=== PATIENT | female | born 1950 | race Caucasian/White ===

== ENCOUNTER 2023-04-01 15:41 | Observation (INO) ==
--- NOTE | 2023-04-01 16:35 | Emergency Department Note ---
History of Present Illness General Chief complaint: Chest Pain Stated complaint: CHEST PAIN Time Seen by Provider: 04/01/23 16:09 History of Present Illness Maximum Pain Intensity: 2 72-year-old female with past medical history significant for hyperlipidemia and SVT presents to the emergency department accompanied by for evaluation of chest pain. Patient states she woke from her sleep yesterday with left-sided chest pain. She described it as a tenderness/ache. Episode lasted until the afternoon. Her pain did radiate up into her jaw and down her left arm. Symptoms resolved and did not return until she was seen by her PCP earlier this afternoon. She notes that she did have an episode last week as well but related to a pulled muscle as she was pulling weeds in her garden earlier in the day. She denies associated palpitations or shortness of breath. No dizziness/lig htheadedness. She did walk her routine 5 miles this morning and did notice feeling more short of breath during it. Her chest pain does not appear to be associated with exertion. It is not pleuritic in nature. She denies recent cold-like symptoms, fever/chills, cough, nausea/vomiting, abdominal pain. No diarrhea, urinary symptoms, hematuria, hematochezia, or melena. She denies history of UT. Denies history of blood clots, lower extremity swelling, calf pain, recent prolonged immobilization/surgeries, hormone use. Her only medications is atorvastatin for HLD. She has not taken anything for her symptoms. Home Medications Medication Instructions Recorded Confirmed Type Probiotic 1 cap PO DAILY 04/01/23 04/01/23 History atorvastatin 10 mg tablet 10 mg PO HS 04/01/23 04/01/23 History melatonin 5 mg chewable tablet 5 mg PO HS PRN sleep 04/01/23 04/01/23 History multivitamin 2 tab PO DAILY 04/01/23 04/01/23 History omega 0-vsv-qgu-fish oil 1,000 mg 1 cap PO DAILY 04/01/23 04/01/23 History (120 mg-180 mg) capsule (Fish Oil) Allergies Allergy/AdvReac Type Severity Reaction Status Date / Time streptomycin Allergy Unknown Unverified 09/29/09 02:21 augmentin Allergy Unknown rash Uncoded 04/01/23 18:18 tetracycline Allergy Unknown rash Uncoded 04/01/23 18:18 avelox AdvReac Unknown headache Uncoded 04/01/23 18:18 carvalho-2 inhibitors AdvReac Unknown unknown Uncoded 04/01/23 18:18 Past Med/Surg History Medical History (Updated 04/01/23 @ 18:29 by Cristiana Ludwig PA-C) Bruxism, sleep-related Hyperlipidemia Other osteoporosis Prediabetes Social History Smoking Status: Never smoker Feels Safe at Home: Yes Physical Exam Vital Signs Vital Signs - 24 hr 04/01/23 15:45 04/01/23 16:36 04/01/23 15:42 Temperature 36.6 C Temperature Source Oral Pulse Rate 73 67 Pulse Rate [Apical] Respiratory Rate 18 Respiratory Effort / Characteristics Respiratory Depth Respiratory Pattern Blood Pressure 167/85 H Blood Pressure [Left Arm] Blood Pressure Mean 112 Blood Pressure Mean [Left Arm] Pulse Oximetry 99 Oxygen Delivery Method Room Air Sepsis Recent Fever Within 48 Hours No Sepsis New/Unexplained Change in Mental Status No Sepsis Action Taken by Nursing No Action Required 04/01/23 15:42 04/01/23 17:41 Temperature Temperature Source Pulse Rate Pulse Rate [Apical] 65 Respiratory Rate 18 Respiratory Effort / Characteristics Non-Labored Non-Labored Respiratory Depth Normal Normal Respiratory Pattern Regular Blood Pressure Blood Pressure [Left Arm] 154/72 H Blood Pressure Mean Blood Pressure Mean [Left Arm] 99 Pulse Oximetry 97 Oxygen Delivery Method Room Air Room Air Sepsis Recent Fever Within 48 Hours Sepsis New/Unexplained Change in Mental Status Sepsis Action Taken by Nursing Constitutional: alert and oriented x3. no acute distress. nontoxic. HEENT: normocephalic, atraumatic. normal conjunctiva.PERRLA. EOM's grossly intact. TMs pearly de la cruz without effusion. Pharynx pink without exudate. Tonsils nonenlarged. Mucus membranes moist Neck: neck is supple, nontender. Respiratory: lungs are clear to auscultation without wheezes, rhonchi, or rales bilaterally. equal chest rise. normal respiratory effort, no accessory muscle use. mild tenderness to palpation mid anterior left chest wall Cardiovascular: normal heart sounds without murmur. regular rate and rhythm. GI: abdomen is soft, nontender. No palpable masses. No rebound tenderness or guarding. No CVA tenderness MSK: moves all 4 extremities spontaneously Peripheral vascular: extremities warm and well perfused with palpable pulses. Psych:appropriate mood and affect. Course Administered Medications Discontinued Medications Aspirin (Aspirin Chew 324 Mg) 324 mg PO NOW STA Stop: 04/01/23 18:04 Last Admin: 04/01/23 18:08 Dose: 324 mg Documented By: [facility] Medical Decision Making Differential Diagnosis Cardiac ischemia, aortic dissection, pulmonary embolism, pneumothorax, pneumonia , pericarditis, myocarditis, esophageal rupture, GERD, cholecystitis, pancreatitis, musculoskeletal, as well as other pathologies. Laboratory Data Attestation: I reviewed the patient's lab results. 04/01/23 16:38 04/01/23 16:38 Lab Results 04/01/23 04/01/23 04/01/23 Range/Units 16:38 16:38 16:38 WBC 8.43 (4.8-10.8) K/ul RBC 4.32 (4.20-5.40) M/uL Hgb 12.3 (12.0-16.0) g/dl Hct 37.1 (37.0-47.0) % MCV 85.9 (80.0-100.0) fL MCH 28.5 (25.0-34.0) pg MCHC 33.2 (32.0-36.0) g/dL RDW Std Deviation 42.1 (36.4-46.3) fL RDW Coeff of Jil 13.4 (11.5-14.5) % Plt Count 308 (130-400) K/uL MPV 9.4 (9.4-12.4) fL Immature Gran % (Auto) 0.2 % Neut % (Auto) 76.5 % Lymph % (Auto) 14.6 % Baker % (Auto) 7.5 % Eos % (Auto) 0.6 % Baso % (Auto) 0.6 % Neut # (Auto) 6.45 (1.40-6.50) K/uL Lymph # (Auto) 1.23 (1.2-3.4) K/uL Baker # (Auto) 0.63 H (0.11-0.59) K/uL Eos # (Auto) 0.05 (0-0.50) K/uL Baso # (Auto) 0.05 (0-0.2) K/uL Immature Gran # (Auto) 0.02 (0.01-0.20) K/uL PT 10.7 (9.0-12.0) Seconds INR 1.0 (0.9-1.1) APTT 27.6 (21.0-31.0) Seconds PTT Ratio 1.0 Sodium 137 (136-145) mmol/L Potassium 4.1 (3.5-5.1) mmol/L Chloride 105 (98-107) mmol/L Carbon Dioxide 26 (21-32) mmol/L Anion Gap 6 (3-11) BUN 15 (6-23) mg/dl Creatinine 0.70 (0.6-1.2) mg/dl Est Cr Clr Drug Dosing 68.0 ml/min Est GFR ( Amer) 100.3 ml/min Est GFR (Non-Af Amer) 86.6 ml/min BUN/Creatinine Ratio 21.4 H (10-20) Glucose 95 (70-99(Fasting)) mg/dl Calcium 9.1 (8.6-10.3) mg/dl Total Bilirubin 0.5 (0.2-1.0) mg/dl AST 27 (13-39) U/L ALT 21 (7-52) U/L Alkaline Phosphatase 76 (34-104) U/L Troponin I High Sens 2.6 (0-14) pg/ml Total Protein 6.9 (6.0-8.3) gm/dl Albumin 4.2 (3.4-5.0) gm/dl Globulin 2.7 (2.5-4.0) gm/dl Albumin/Globulin Ratio 1.6 (0.9-2) Lipase 52 (11-82) U/L Imaging Data My Impression: Chest x-ray per my interpretation without focal consolidation, pneumothorax, pleural effusion Radiologist's Impression: Chest X-Ray 04/01/23 16:25 XR chest 1V portable CLINICAL HISTORY: Chest pain, nonspecific TECHNIQUE: Single frontal radiograph of the chest was obtained. Comparison: None available at the time of this dictation. FINDINGS: No lines and tubes are seen. Calcified aortic knob is seen. The lungs are clear. No evidence of pleural effusion or pneumothorax. IMPRESSION: No acute chest disease. ACT 112: Negative or not required by law. Electronically signed by: Osvaldo Jeter M.D. 04/01/2023 4:48 PM MDM Narrative 72-year-old female who presents to the emergency department for evaluation of left-sided chest pain. Review of pertinent visits and past medical history performed. Vital signs in ED stable, afebrile. Patient was seen and evaluated as above. IV access was established and labs were obtained. CBC without leukocytosis or acute anemia. CMP without significant electrolyte abnormalities. Renal function within normal limits. LFTs and lipase unremarkable. Coags within normal limits. Troponin negative. EKG demonstrates normal sinus rhythm at a rate of 69 bpm without evidence of ischemic changes. No ST elevations or T wave inversions. No previous EKGs to compare. Patient was placed on a site monitor and at time of my interpretation demonstrates normal sinus rhythm at 73 bpm. Chest x-ray unremarkable. On exam, patient is nontoxic-appearing in no acute distress. She is maintaining normal O2 saturations on room air. Lungs CTA. Abdomen is benign. There is mild reproducible tenderness to the left anterior chest wall. She was given full dose Aspirin 325mg to chew. She declined pain medications while in the ED as she is currently not having any chest pain at this time. Upon reevaluation, patient remained stable with no new concerns. Hemodynamically stable. She continues to deny chest pain. Case was discussed with ED attending, Dr. Angeles. EKG reviewed with him. Her and her were updated on all exam findings and test results. Today's work-up has been reassuring. No evidence of acute UT. No widening mediastinum on CXR to suggest aortic dissection. I do not suspect PE. We discussed treatment options. Given characteristics of symptoms as well as her risk factors, I do feel admission to the hospital for full cardiac work-up is warranted at this time. They are in agreement with this. Case was discussed with hospitalist, Dr. Anguiano, who graciously accepted patient to her service for further management. Patient was admitted in stable condition. Impression & Plan Chest pain, Hyperlipidemia Discharge Plan Visit Data Chief Complaint: Chest Pain Stated Complaint: CHEST PAIN ED Provider: Luigi Angeles ED Midlevel Provider: Cristiana Ludwig Discharge Problem: Chest pain, Hyperlipidemia Patient Disposition: Admitted As Inpatient Prescriptions Prescriptions: No Action atorvastatin 10 mg tablet 10 mg PO HS omega 1-dgl-ihg-fish oil [Fish Oil] 1,000 mg (120 mg-180 mg) Capsule 1 cap PO DAILY multivitamin [Multi-Vitamin] Tablet 2 tab PO DAILY melatonin 5 mg Tablet,Chewable 5 mg PO HS PRN (Reason: sleep) Probiotic 1 cap PO DAILY Referrals Referrals: PCP,NO [Physician] -
--- NOTE | 2023-04-01 16:50 | XRay Report ---
XR chest 1V portable CLINICAL HISTORY: Chest pain, nonspecific TECHNIQUE: Single frontal radiograph of the chest was obtained. Comparison: None available at the time of this dictation. FINDINGS: No lines and tubes are seen. Calcified aortic knob is seen. The lungs are clear. No evidence of pleur al effusion or pneumothorax. IMPRESSION: No acute chest disease. ACT 112: Negative or not required by law. Electronically signed by: Osvaldo Jeter M.D. 04/01/2023 4:48 PM
[2023-04-01 17:20] LABS: Basophils # (auto) 0.05 K/uL (0-0.2); Basophils % (auto) 0.6 %; Eosinophils # (auto) 0.05 K/uL (0-0.50); Eosinophils % (auto) 0.6 %; Hematocrit (blood only) 37.1 % (37.0-47.0); Hemoglobin 12.3 g/dl (12.0-16.0); Immature Granulocytes # (auto) 0.02 K/uL (0.01-0.20); Immature Granulocytes % (auto) 0.2 %; Lymphocytes # (auto) 1.23 K/uL (1.2-3.4); Lymphocytes % (auto) 14.6 %; Mean Corpuscular Hemoglobin 28.5 pg (25.0-34.0); Mean Corpuscular Hgb Conc 33.2 g/dL (32.0-36.0); Mean Corpuscular Volume 85.9 fL (80.0-100.0); Mean Platelet Volume 9.4 fL (9.4-12.4); Monocytes # (auto) 0.63 K/uL (0.11-0.59); Monocytes % (auto) 7.5 %; Neutrophils # (auto) 6.45 K/uL (1.40-6.50); Neutrophils % (auto) 76.5 %; Platelet Count 308 K/uL (130-400); RDW Coefficient of Variation 13.4 % (11.5-14.5); RDW Standard Deviation 42.1 fL (36.4-46.3); Red Blood Count 4.32 M/uL (4.20-5.40); White Blood Count 8.43 K/ul (4.8-10.8)
[2023-04-01 17:32] LABS: Albumin Globulin Ratio 1.6 (0.9-2); Albumin Level 4.2 gm/dl (3.4-5.0); BUN Creatinine Ratio 21.4 (10-20); Bilirubin,Total 0.5 mg/dl (0.2-1.0); Calcium 9.1 mg/dl (8.6-10.3); Est GFR (African American) 100.3 ml/min; Est GFR (Non-African American) 86.6 ml/min; Globulin 2.7 gm/dl (2.5-4.0); Potassium 4.1 mmol/L (3.5-5.1); Total Protein 6.9 gm/dl (6.0-8.3)
[2023-04-01 17:39] LABS: Troponin I High Sensitivity 2.6 pg/ml (0-14)
[2023-04-01 17:51] LABS: Partial Thromboplastin Time 27.6 Seconds (21.0-31.0); Prothrombin Time 10.7 Seconds (9.0-12.0)
[2023-04-01] MEDS ORDERED: ASPIRIN CHEW 324 MG PO STA (18:03)
--- NOTE | 2023-04-01 18:21 | History & Physical Report ---
Date of Service April 01, 2023 Assessment & Plan (1) Chest pain: Plan: Possible accelerated angina. EKG without acute ischemic changes and HS trop in negative. Given full dose aspirin and statin therapy was intensified. Admit for rule out ACS and consider risk stratification in the morning. Will plan to add small dose of Norvasc tonight to help with situational HTN. Appreciate cardiology recommendations. (2) Prediabetes: Plan: chronic, diet controlled. (3) Hyperlipidemia: Plan: chronic, atorvastatin intensified based on elevated ASCVD risk score and because of ACS consideration above. Would continue with the 40mg dose at discharge unless otherwise noted by cardiology (4) Elevated blood pressure, situational: Plan: Norvasc 5mg given now. Lovenox Full Code Dispo- likely to home in am. I spent a total of 75 minutes coordinating, documenting, and providing care for this patient excluding time spent in the performance of separately billed services Aileen Anguiano DO [facility] Hospitalist History of Present Illness Chief Complaint: chest pain Primary Care Provider: Barbi Franco MD 72 yo F with two days of chest pain 72-year-old female presents with 1 week of intermittent chest pain. Pain is in the left anterior chest with radiation into left shoulder and left neck. There are no associated symptoms of diaphoresis, palpitations, shortness of breath, nausea associated. She does typically walk 5 miles on Friday mornings and during her walk this morning she walked approximately 4-1/2 miles and became very winded. She reports the first episode of pain was 1 week ago after excessive gardening. She figured it was musculoskeletal in nature. Yesterday she developed the same pain again which woke her up in the morning and lasted several hours although she was able to do significant housework including cleaning and baking cookies and walking the dog during this pain. Rest made the pain better. Chest pain came on again with the same description this morning. She has no noted issue with blood pressure and is not on antihypertensives. She does have a history of hyperlipidemia and has been on atorvastatin 10 mg nightly for over a year. Recent lipid panel was utilized to perform ASCVD risk score which is elevated to 16.3%. We discussed intensifying her atorvastatin therapy and she is in agreement with this. Workup in the ER reveals a high risk sensitive troponin that is negative at 2.6. EKG reviewed from the clinic today reveals SR [address] changes consistent with ischemia. Repeat EKG in the ER shortly after revealed sinus rhythm 69 with no changes. She was given a full dose aspirin and admitted for monitoring of possible accelerated angina. Per outpatient review of records, January 2023 lab work reveals an A1c of 6.0 and LDL of 118. On average she stays hydrated with good p.o. intake. Caffeine intake is minimal with 1 og tea per day. She did notice she is burping more today and had a headache earlier this afternoon which is not out of the ordinary for her. She denies any blood per rectum. She has no history of chest pain in the past but had a stress test in the distant past and does not remember the results or indications for the chest. She does have a family history of heart disease with her father diagnosed at 62 years old. She is a never smoker and alcohol use is rare. She reports her blood pressure is elevated today secondary to the stress of being in the ER. Allergies Allergy/AdvReac Type Severity Reaction Status Date / Time streptomycin Allergy Unknown Unverified 09/29/09 02:21 augmentin Allergy Unknown rash Uncoded 04/01/23 18:18 tetracycline Allergy Unknown rash Uncoded 04/01/23 18:18 avelox AdvReac Unknown headache Uncoded 04/01/23 18:18 carvalho-2 inhibitors AdvReac Unknown unknown Uncoded 04/01/23 18:18 Home Medications Medication Instructions Recorded Confirmed Type Probiotic 1 cap PO DAILY 04/01/23 04/01/23 History atorvastatin 10 mg tablet 10 mg PO HS 04/01/23 04/01/23 History melatonin 5 mg chewable tablet 5 mg PO HS PRN sleep 04/01/23 04/01/23 History multivitamin 2 tab PO DAILY 04/01/23 04/01/23 History omega 5-uny-fdg-fish oil 1,000 mg 1 cap PO DAILY 04/01/23 04/01/23 History (120 mg-180 mg) capsule (Fish Oil) Past Med/Surg History Medical History Bruxism, sleep-related Hyperlipidemia Other osteoporosis Prediabetes Surgical History S/P cataract surgery Social History (Updated 04/01/23 @ 20:35 by Aileen Anguiano, DO) Smoking Status: Never smoker Do You Dip or Chew Tobacco: No; Hx Alcohol Use: No Hx Substance Use: No Feels Safe at Home: Yes Review of Systems Review of Systems: All systems reviewed negative except as indicated above. Physical Exam Physical Exam: CONSTITUTIONAL: WNWD, vitals as above, generally well-appearing, NAD EYES: normal conjunctivae, no scleral icterus ENT: external ear and nose normal, MMM NECK: trachea midline RESPIRATORY: clear to auscultation bilaterally, no crackles, rales or wheezes, normal respiratory effort CARDIOVASCULAR: regular rate and rhythm, S1 and 2 heard without murmurs, gallops or rubs, no JVD, no peripheral edema CHEST: inspection of chest was normal, no TTP upon palpation of the left anterior chest wall. GASTROINTESTINAL: soft, nontender, ND, no guarding MUSCULOSKELETAL: strength 5/5 throughout, head is normocephalic and atraumatic SKIN: warm and dry NEUROLOGIC: CN 2-12 grossly intact, no sensory deficit, normal cognition, normal speech, no tremor PSYCHIATRIC: alert cooperative and oriented to person, place and time. Euthymic mood, makes good eye contact, language grossly intact, recent and remote memory grossly intact. Results & Data Results & Data Vital Signs (Past 12 Hours) Vital Signs Temp Pulse Pulse Resp BP BP Pulse Ox 04/01/23 17:41 65 18 154/72 H 97 04/01/23 15:42 04/01/23 15:42 04/01/23 16:36 67 04/01/23 15:45 36.6 C 73 18 167/85 H 99 O2 Del Method 04/01/23 17:41 Room Air 04/01/23 15:42 Room Air 04/01/23 15:42 Room Air 04/01/23 16:36 04/01/23 15:45 Laboratory Results Short CBC 04/01/23 Range/Units 16:38 WBC 8.43 (4.8-10.8) K/ul Hgb 12.3 (12.0-16.0) g/dl Hct 37.1 (37.0-47.0) % Plt Count 308 (130-400) K/uL BMP 04/01/23 16:38 Sodium 137 Potassium 4.1 Chloride 105 Carbon Dioxide 26 BUN 15 Creatinine 0.70 Glucose 95 Calcium 9.1 Liver Function 04/01/23 Range/Units 16:38 Total Bilirubin 0.5 (0.2-1.0) mg/dl AST 27 (13-39) U/L ALT 21 (7-52) U/L Alkaline Phosphatase 76 (34-104) U/L Albumin 4.2 (3.4-5.0) gm/dl Diagnostic Findings Chest X-Ray 04/01/23 16:25 XR chest 1V portable CLINICAL HISTORY: Chest pain, nonspecific TECHNIQUE: Single frontal radiograph of the chest was obtained. Comparison: None available at the time of this dictation. FINDINGS: No lines and tubes are seen. Calcified aortic knob is seen. The lungs are clear. No evidence of pleural effusion or pneumothorax. IMPRESSION: No acute chest disease. ACT 112: Negative or not required by law. Electronically signed by: Osvaldo Jeter M.D. 04/01/2023 4:48 PM Code Status & VTE Plan VTE Prophylaxis Plan VTE Prophylaxis will be ordered: Yes
[2023-04-01] MEDS ORDERED: ATORVASTATIN 40 MG TAB PO SCH (19:00)
[2023-04-01] MEDS ORDERED: ENOXAPARIN INJ 40 MG/0.4 ML SYR SQ SCH (21:42)
[2023-04-01] MEDS ORDERED: ACETAMINOPHEN 325 MG TAB PO PRN (21:42)
[2023-04-01] MEDS ORDERED: amLODIPine BESYLATE 5 MG TAB PO ONE (21:42)
[2023-04-01] MEDS ORDERED: MoRPHine SULFATE 2 MG/ML CARP IV PRN (21:42)
[2023-04-01] MEDS ORDERED: NITROGLYCERIN SL 0.4 MG/TAB TAB SL PRN (21:42)
[2023-04-02 07:41] LABS: Hematocrit (blood only) 38.5 % (37.0-47.0); Mean Corpuscular Hemoglobin 28.6 pg (25.0-34.0); Mean Corpuscular Hgb Conc 33.8 g/dL (32.0-36.0); Mean Corpuscular Volume 84.8 fL (80.0-100.0); Platelet Count 303 K/uL (130-400); RDW Coefficient of Variation 13.4 % (11.5-14.5); RDW Standard Deviation 41.9 fL (36.4-46.3); Red Blood Count 4.54 M/uL (4.20-5.40); White Blood Count 6.07 K/ul (4.8-10.8)
[2023-04-02 07:50] LABS: BUN Creatinine Ratio 18.5 (10-20); Chol HDL Ratio 3.8 (0-5); Creatinine Clr Calc Pharmacy 73.2 ml/min; Est GFR (African American) 102.8 ml/min; Est GFR (Non-African American) 88.7 ml/min; Magnesium 2.2 mg/dl (1.7-2.4); Potassium 3.7 mmol/L (3.5-5.1)
[2023-04-02 07:57] LABS: Troponin I High Sensitivity 3.7 pg/ml (0-14)
--- NOTE | 2023-04-02 08:01 | Cardiology Consultation ---
Date of Consultation April 02, 2023 Assessment & Plan (1) Chest pain: (2) Dyspnea on exertion: (3) Hyperlipidemia: (4) Hypertension: Plan Please refer to physician addendum for additional information and full plan of care. Supervising Physician Co-Signing Physician Notes Attending Staff Pt seen and evaluated with [facility] staff. Concur with observations and plans 72 yo woman presenting with Chest Discomfort (x 3 hrs) + Associated Dyspnea Noted to occur with exertion (gardening) No known CAD Troponin negative x 3 EKG - no ischemic changes + HTN on presentation Rx with Amlodipine 5 mg po per day ASA started ASCVD Risks: NO DM - A1C 6 NO known HTN + Hyperlipidemia LDL 128 No CVA No PVD Non Smoker Plan: 72 yo woman Chest discomfort Hyperlipidemia; HTN (just recognized) No known CAD Troponin negative x 3 EKG - no ischemic changes Plans for Stress ECHO Continue ASA 81 mg po per day Continue Lipitor @ higher dose of 40 mg po per day HR 60 - no beta blockeron board SBP 130 mmHg - no antihypertensives Pt made NPO ECHO lab contacted [facility] History of Present Illness Reason for Consultation: Chest pain Requesting Physician: [facility] Attending Physician: Cl Browne MD History of Present Illness 72-year-old female who initially presented to [facility] emergency department due to intermittent exertional chest discomfort. Symptoms located in the left anterior chest region with radiation into the left shoulder and left neck accompanied by dyspnea on exertion. Symptoms improved with rest. EKG showing normal sinus rhythm in the mid 60s without acute ST segment changes. High-sensitivity troponin negative x 2, third pending. LDL elevated 128, currently on statin therapy. Atorvastatin increased this admission (10>>40mg). Chest x-ray unremarkable. Blood pressures were initially hypertensive but improved this morning with a single dose of amlodipine 5 mg (new med). Blood pressures are normally well- controlled as an outpatient. Primary outpatient network systems administrator: Dr. Jesus Past medical history: Paroxysmal atrial tachycardia/palpitations Hyperlipidemia Allergies Allergy/AdvReac Type Severity Reaction Status Date / Time streptomycin Allergy Unknown Unverified 09/29/09 02:21 augmentin Allergy Unknown rash Uncoded 04/01/23 18:18 tetracycline Allergy Unknown rash Uncoded 04/01/23 18:18 avelox AdvReac Unknown headache Uncoded 04/01/23 18:18 carvalho-2 inhibitors AdvReac Unknown unknown Uncoded 04/01/23 18:18 Home Medications Medication Instructions Recorded Confirmed Type Probiotic 1 cap PO DAILY 04/01/23 04/01/23 History atorvastatin 10 mg tablet 10 mg PO HS 04/01/23 04/01/23 History melatonin 5 mg chewable tablet 5 mg PO HS PRN sleep 04/01/23 04/01/23 History multivitamin 2 tab PO DAILY 04/01/23 04/01/23 History omega 6-exi-ryb-fish oil 1,000 mg 1 cap PO DAILY 04/01/23 04/01/23 History (120 mg-180 mg) capsule (Fish Oil) Patient History Medical History Bruxism, sleep-related Hyperlipidemia Other osteoporosis Prediabetes Surgical History S/P cataract surgery Social History (Updated 04/01/23 @ 20:35 by Aileen Anguiano DO) Smoking Status: Never smoker Do You Dip or Chew Tobacco: No; Hx Alcohol Use: No Hx Substance Use: No Preferred Language: Austrian Signal Worker Required: No Beliefs That Will Affect Care: None Current Living Situation: Spouse Current Living Situation Comment: Lives at home with and dog Feels Safe at Home: Yes Safety Concerns: Feels Safe At This Time Assistive Devices: Glasses Physical Exam Physical Exam: Thin woman in NAD No elevation in JVP S1S2 Soft 2/6 systolic murmur CTA B No C/C/E Warm and well perfused Results & Data Vital Signs (Past 12 Hours) Vital Signs Temp Pulse Pulse Resp BP BP Pulse Ox 04/02/23 07:32 79 04/02/23 03:55 36.7 C 63 18 108/60 96 04/01/23 23:50 36.6 C 59 L 18 144/72 H 97 04/01/23 22:03 65 04/01/23 21:42 36.8 C 65 16 163/76 H 98 04/01/23 21:42 36.8 C 65 16 163/76 H 98 04/01/23 20:32 61 14 186/77 H 98 04/01/23 20:30 65 17 99 04/01/23 20:00 62 14 155/83 H 96 04/01/23 20:16 64 O2 Del Method 04/02/23 07:32 04/02/23 03:55 Room Air 04/01/23 23:50 Room Air 04/01/23 22:03 04/01/23 21:42 Room Air 04/01/23 21:42 Room Air 04/01/23 20:32 04/01/23 20:30 04/01/23 20:00 04/01/23 20:16 Laboratory Results Cardiac Enzymes 04/01/23 04/01/23 Range/Units 16:38 22:32 AST 27 (13-39) U/L Troponin I High Sens 2.6 3.3 (0-14) pg/ml Coagulation 04/01/23 Range/Units 16:38 PT 10.7 (9.0-12.0) Seconds APTT 27.6 (21.0-31.0) Seconds Lipids 04/02/23 Range/Units 07:06 Triglycerides 112 (0-150) mg/dl Cholesterol 203 H (0-200) mg/dl HDL Cholesterol 53 mg/dl Cholesterol/HDL Ratio 3.8 (0-5) CBC 04/01/23 04/02/23 Range/Units 16:38 07:06 WBC 8.43 6.07 (4.8-10.8) K/ul RBC 4.32 4.54 (4.20-5.40) M/uL Hgb 12.3 13.0 (12.0-16.0) g/dl Hct 37.1 38.5 (37.0-47.0) % Plt Count 308 303 (130-400) K/uL Neut # (Auto) 6.45 (1.40-6.50) K/uL Lymph # (Auto) 1.23 (1.2-3.4) K/uL Sawyer # (Auto) 0.63 H (0.11-0.59) K/uL Eos # (Auto) 0.05 (0-0.50) K/uL Baso # (Auto) 0.05 (0-0.2) K/uL Comprehensive Metabolic Panel 04/01/23 04/02/23 Range/Units 16:38 07:06 Sodium 137 139 (136-145) mmol/L Potassium 4.1 3.7 (3.5-5.1) mmol/L Chloride 105 108 H (98-107) mmol/L Carbon Dioxide 26 26 (21-32) mmol/L BUN 15 12 (6-23) mg/dl Creatinine 0.70 0.65 (0.6-1.2) mg/dl Glucose 95 98 (70-99(Fasting)) mg/dl Calcium 9.1 9.0 (8.6-10.3) mg/dl AST 27 (13-39) U/L ALT 21 (7-52) U/L Alkaline Phosphatase 76 (34-104) U/L Total Protein 6.9 (6.0-8.3) gm/dl Albumin 4.2 (3.4-5.0) gm/dl Intake and Output 04/01/23 04/02/23 04/02/23 22:59 06:59 14:59 Intake Total 120 / 320 200 / 320 Balance 120 / 320 200 / 320 Intake: Oral 120 / 320 200 / 320 Other: Weight 65.9 kg Weight Measurement Method Standing Scale Diagnostic Findings Outpatient echocardiogram 12/28/2021 LVEF normal 60 to 64% No wall motion abnormalities Right and left atrium normal in size. No significant valvular disease
[2023-04-02] MEDS ORDERED: ASPIRIN 81 MG ECTAB PO SCH (09:00)
[2023-04-02] MEDS ORDERED: ATORVASTATIN 40 MG TAB PO SCH (09:00)
[2023-04-02] MEDS ORDERED: POTASSIUM CHLORIDE CRTAB 20 MEQ TABCR PO STA (11:47)
--- NOTE | 2023-04-02 14:16 | Electrocardiogram Report ---
Test Reason : Blood Pressure : / mmHG Vent. Rate : 060 BPM Atrial Rate : 060 BPM P-R Int : 168 ms QRS Dur : 080 ms QT Int : 440 ms P-R-T Axes : 062 045 084 degrees QTc Int : 440 ms Normal sinus rhythm Low voltage QRS Borderline ECG When compared with ECG of 01-APR-2023 15:53, (unconfirmed) No significant change was found Confirmed by James Worley ([id number]) on 04/02/2023 2:16:35 PM Referred By: REFERRED SELF Confirmed By:Solomon Worley
--- NOTE | 2023-04-02 14:20 | Electrocardiogram Report ---
Test Reason : Blood Pressure : / mmHG Vent. Rate : 069 BPM Atrial Rate : 069 BPM P-R Int : 168 ms QRS Dur : 088 ms QT Int : 418 ms P-R-T Axes : 061 042 071 degrees QTc Int : 447 ms Normal sinus rhythm Low voltage QRS Borderline ECG When compared with ECG of 12-AUG-2005 09:36, No significant change was found Confirmed by James Worley ([id number]) on 04/02/2023 2:20:04 PM Referred By: REFERRED SELF Confirmed By:Solomon Worley
--- NOTE | 2023-04-02 19:04 | Hospitalist Progress Note ---
Date of Service April 02, 2023 Assessment & Plan (1) Chest pain: (2) Prediabetes: (3) Hyperlipidemia: (4) Elevated blood pressure, situational: Plan: per admitting service notes with addendum: (1) Chest pain Acute Coronary Syndrome ruled out Troponin negative EKG no ischemia Stress Echo: negative for ischemia Cardiology consulted chest pain resolved (2) Prediabetes: Plan: chronic, diet controlled. (3) Hyperlipidemia: Plan: chronic, atorvastatin intensified based on elevated ASCVD risk score and because of ACS consideration above. Would continue with the 40mg dose at discharge. (4) Elevated blood pressure, situational: Plan: Norvasc 5mg given resolved Disposition d/c home ff up with PCP in 1 week Admission and Anticipated Discharge Date Admission Date: April 01, 2023 Subjective ff up for chest pain, etc seen resting in bed, comfortable in good spirits states she feels fine chest pain resolved no chest pain, dyspnea, palpitations, dizziness no fever/chills, cough ambulating with no problems no other symptoms states she is ready and would like to be discharged today Review of Systems Review of Systems: all noted and negative except for above Physical Exam Physical Exam: General- oriented x 3, not in distress, speaks in sentences with no effort or accessory muscle use Eyes- anicteric Neck- no JVD Lungs- clear breath sounds bilaterally, no rales/wheezes Heart- normal rate, regular rhythm; no murmurs Abdomen- normal bowel sounds, nondistended, soft, nontender Extremities- no pretibial edema, no calf tenderness Neuro- alert, oriented x 3; no gross focal neurologic deficits Skin- warm & dry Results & Data Results & Data Vital Signs (Past 12 Hours) Vital Signs Temp Pulse Pulse Pulse Resp BP Pulse Ox 04/02/23 16:33 36.7 C 74 97 H 16 97/55 L 97 04/02/23 16:17 36.7 C 97 H 16 97/55 L 97 04/02/23 15:14 80 04/02/23 11:50 36.8 C 74 16 120/76 98 04/02/23 07:50 36.3 C L 60 14 130/80 98 04/02/23 07:32 79 O2 Del Method 04/02/23 16:33 04/02/23 16:17 Room Air 04/02/23 15:14 04/02/23 11:50 Room Air 04/02/23 07:50 Room Air 04/02/23 07:32 all noted and reviewed including below
--- NOTE | 2023-04-02 20:26 | Discharge Summary ---
Discharge Summary Date of Service April 02, 2023 Notes For Next Care Provider Medication Changes From Visit Lipitor increased from 10 mg to 40 mg daily Admission HPI Per Admitting Provider 72 yo F with two days of chest pain 72-year-old female presents with 1 week of intermittent chest pain. Pain is in the left anterior chest with radiation into left shoulder and left neck. There are no associated symptoms of diaphoresis, palpitations, shortness of breath, nausea associated. She does typically walk 5 miles on Friday mornings and during her walk this morning she walked approximately 4-1/2 miles and became very winded. She reports the first episode of pain was 1 week ago after excessive gardening. She figured it was musculoskeletal in nature. Yesterday she developed the same pain again which woke her up in the morning and lasted several hours although she was able to do significant housework including cleaning and baking cookies and walking the dog during this pain. Rest made the pain better. Chest pain came on again with the same description this morning. She has no noted issue with blood pressure and is not on antihypertensives. She does have a history of hyperlipidemia and has been on atorvastatin 10 mg nightly for over a year. Recent lipid panel was utilized to perform ASCVD risk score which is elevated to 16.3%. We discussed intensifying her atorvastatin therapy and she is in agreement with this. Workup in the ER reveals a high risk sensitive troponin that is negative at 2.6. EKG reviewed from the clinic today reveals SR [address] changes consistent with ischemia. Repeat EKG in the ER shortly after revealed sinus rhythm 69 with no changes. She was given a full dose aspirin and admitted for monitoring of possible accelerated angina. Per outpatient review of records, January 2023 lab work reveals an A1c of 6.0 and LDL of 118. On average she stays hydrated with good p.o. intake. Caffeine intake is minimal with 1 og tea per day. She did notice she is burping more today and had a headache earlier this afternoon which is not out of the ordinary for her. She denies any blood per rectum. She has no history of chest pain in the past but had a stress test in the distant past and does not remember the results or indications for the chest. She does have a family history of heart disease with her father diagnosed at 62 years old. She is a never smoker and alcohol use is rare. She reports her blood pressure is elevated today secondary to the stress of being in the ER. Admission Exam Per Admitting Provider CONSTITUTIONAL: [facility], vitals as above, generally well-appearing, NAD EYES: normal conjunctivae, no scleral icterus ENT: external ear and nose normal, MMM NECK: trachea midline RESPIRATORY: clear to auscultation bilaterally, no crackles, rales or wheezes, normal respiratory effort CARDIOVASCULAR: regular rate and rhythm, S1 and 2 heard without murmurs, gallops or rubs, no JVD, no peripheral edema CHEST: inspection of chest was normal, no TTP upon palpation of the left anterior chest wall. GASTROINTESTINAL: soft, nontender, ND, no guarding MUSCULOSKELETAL: strength 5/5 throughout, head is normocephalic and atraumatic SKIN: warm and dry NEUROLOGIC: CN 2-12 grossly intact, no sensory deficit, normal cognition, rosette l speech, no tremor PSYCHIATRIC: alert cooperative and oriented to person, place and time. Euthymic mood, makes good eye contact, language grossly intact, recent and remote memory grossly intact. Principal Dx & Hospital Course #1 = Principal Diagnosis (1) Chest pain: (2) Prediabetes: (3) Hyperlipidemia: (4) Elevated blood pressure, situational: per admitting service notes with addendum: (1) Chest pain Acute Coronary Syndrome ruled out Troponin negative EKG no ischemia Stress Echo: negative for ischemia Cardiology consulted chest pain resolved (2) Prediabetes: Plan: chronic, diet controlled. (3) Hyperlipidemia: Plan: chronic, atorvastatin intensified based on elevated ASCVD risk score and because of ACS consideration above. Would continue with the 40mg dose at discharge. (4) Elevated blood pressure, situational: Plan: Norvasc 5mg given resolved Disposition d/c home ff up with PCP in 1 week Discharge Exam General- oriented x 3, not in distress, speaks in sentences with no effort or accessory muscle use Eyes- anicteric Neck- no JVD Lungs- clear breath sounds bilaterally, no rales/wheezes Heart- normal rate, regular rhythm; no murmurs Abdomen- normal bowel sounds, nondistended, soft, nontender Extremities- no pretibial edema, no calf tenderness Neuro- alert, oriented x 3; no gross focal neurologic deficits Skin- warm & dry Updated Medication List Medication Instructions Recorded Confirmed Type Probiotic 1 cap PO DAILY 04/01/23 04/01/23 History melatonin 5 mg chewable tablet 5 mg PO HS PRN sleep 04/01/23 04/01/23 History multivitamin 2 tab PO DAILY 04/01/23 04/01/23 History omega 2-iym-cgc-fish oil 1,000 mg 1 cap PO DAILY 04/01/23 04/01/23 History (120 mg-180 mg) capsule (Fish Oil) atorvastatin 40 mg tablet 40 mg PO DAILY 40 days #40 tabs 04/02/23 Rx Hospital Stay Data Consultations 04/01/23 18:04 ED Decision to Admit Stat 04/01/23 18:57 Consult Cardiology Routine Pending Results Patient Have Any Pending Studies at Discharge: No Discharge Instructions Given to Patient (Per Discharging Provider) PLEASE REFER TO YOUR NEW MEDICATION LIST AND FOLLOW INSTRUCTIONS CAREFULLY. YOUR NEW MEDICATIONS INCLUDE: INCREASE ATORVASTATIN TO 40MG DAILY. PLEASE CALL YOUR PRIMARY CARE PHYSICIAN OR RETURN TO THE ER IF WITH WORSENING OF SYMPTOMS, INCLUDING CHEST PAIN, SHORTNESS OF BREATH, PALPITATIONS, DIZZINESS, ETC FOLLOW UP WITH PRIMARY CARE PHYSICIAN IN 1 WEEK. Total Time Total Time Spent Total Time Spent (In Minutes): >30 minutes
== END 2023-04-02 17:27 | disposition home or self-care (01) ==
LOC: ED 15:41 → 2W 15:41 → SUATTDRO 18:10 → 2W 21:05